=== PATIENT | male | born 1990 | race Two or more races ===

== ENCOUNTER 2016-09-13 12:36 | Emergency (ER) | payer OTHER ==
[~2016-09-13] VITALS: Ht 193 cm; Wt 128.4 kg
[2016-09-13 15:12] VITALS: BP 120/82
== END 2016-09-13 15:12 | disposition home or self-care (01) ==
LOC: ED 12:36
DX: S93.402A Sprain of unspecified ligament of left ankle, initial encounter (principal); X50.1XXA Overexertion from prolonged static or awkward postures, initial encounter; Y93.9 Activity, unspecified; Y92.89 Other specified places as the place of occurrence of the external cause; Y99.8 Other external cause status

== ENCOUNTER 2017-12-10 00:40 | Emergency (ER) | payer OTHER ==
[~2017-12-10] VITALS: Ht 193 cm; Wt 148.6 kg
[2017-12-10 00:50] VITALS: Ht 193 cm; Wt 148.6 kg
[2017-12-10 01:59] LABS: BASOPHIL % 0.3 % (0-2); CALCIUM 8.4 mg/dL (8.5-10.1); CARBON DIOXIDE 28.5 mmol/L (21-32); CHLORIDE SERUM 106 mmol/L (98-107); CREATININE SERUM 1.2 mg/dL (0.7-1.3); GFR1 > 60 mL/min; GLUCOSE SERUM 125 mg/dL (74-106); PLATELET COUNT 372 x10^3mcL (130-400); POTASSIUM SERUM 3.5 mmol/L (3.5-5.1); RED CELL DISTRIBUTION WIDTH 13.6 % (11.5-14.5); SODIUM SERUM 145 mmol/L (136-145)
[2017-12-10 02:00] LABS: ALBUMIN 3.7 g/dL (3.4-5.0); ALKALINE PHOSPHATASE 84 U/L (46-116); ALT/SGPT 80 U/L (16-63); AST/SGOT 23 U/L (15-37); BILIRUBIN TOTAL 1.27 mg/dL (0.20-1.00); LIPASE 117 IU/L (73-393); TOTAL PROTEIN, SERUM 7.1 g/dL (6.4-8.2)
[2017-12-10 03:47] VITALS: BP 138/75
== END 2017-12-10 03:47 | disposition home or self-care (01) ==
LOC: ED 00:40
PROVIDERS: Emergency Medicine
DX: K80.20 Calculus of gallbladder without cholecystitis without obstruction (principal)
CPT/HCPCS: J2405; J3010; J7030; Q0092

== ENCOUNTER 2018-01-25 07:08 | Emergency (ER) | payer OTHER ==
[~2018-01-25] VITALS: Ht 193 cm; Wt 144.2 kg
[2018-01-25 07:16] VITALS: Ht 193 cm; Wt 144.2 kg
[2018-01-25 08:33] VITALS: BP 136/82
== END 2018-01-25 08:33 | disposition home or self-care (01) ==
LOC: ED 07:08
DX: K80.50 Calculus of bile duct without cholangitis or cholecystitis without obstruction (principal)
CPT/HCPCS: J1885; J2270; Q0162

== ENCOUNTER 2018-02-14 07:43 | Emergency (ER) | payer OTHER ==
[~2018-02-14] VITALS: Ht 193 cm; Wt 144.0 kg
[2018-02-14 07:48] VITALS: Ht 193 cm; Wt 144.0 kg
[2018-02-14 08:16] LABS: BASOPHIL % 0.4 % (0-2); PLATELET COUNT 386 x10^3mcL (130-400)
[2018-02-14 08:22] LABS: CALCIUM 8.8 mg/dL (8.5-10.1); CHLORIDE SERUM 103 mmol/L (98-107); CREATININE SERUM 1.1 mg/dL (0.7-1.3); GFR1 > 60 mL/min; GLUCOSE SERUM 108 mg/dL (74-106); POTASSIUM SERUM 3.6 mmol/L (3.5-5.1); SODIUM SERUM 139 mmol/L (136-145)
[2018-02-14 08:27] LABS: ALBUMIN 3.8 g/dL (3.4-5.0); ALKALINE PHOSPHATASE 92 U/L (46-116); ALT/SGPT 76 U/L (16-63); AST/SGOT 40 U/L (15-37); BILIRUBIN TOTAL 1.3 mg/dL (0.20-1.00); LIPASE 155 IU/L (73-393); TOTAL PROTEIN, SERUM 7.4 g/dL (6.4-8.2)
[2018-02-14 09:02] VITALS: BP 130/66
== END 2018-02-14 09:04 | disposition home or self-care (01) ==
LOC: ED 07:43
PROVIDERS: Emergency Medicine
DX: K80.20 Calculus of gallbladder without cholecystitis without obstruction (principal)
CPT/HCPCS: J1885; J7030

== ENCOUNTER 2018-03-08 07:50 | Emergency (ER) | payer OTHER ==
[~2018-03-08] VITALS: Ht 193 cm; Wt 142.0 kg
[2018-03-08 07:53] VITALS: BP 139/92; Ht 193 cm; Wt 142.0 kg
== END 2018-03-08 09:02 | disposition home or self-care (01) ==
LOC: ED 07:50
DX: K80.50 Calculus of bile duct without cholangitis or cholecystitis without obstruction (principal)
CPT/HCPCS: J1885; J3010; Q0162

== ENCOUNTER 2018-03-15 07:01 | Emergency (ER) | payer OTHER ==
[~2018-03-15] VITALS: Ht 193 cm; Wt 142.4 kg
[2018-03-15 07:14] VITALS: Ht 193 cm; Wt 142.4 kg
[2018-03-15 07:38] LABS: BASOPHIL % 0.7 % (0-2); RED CELL DISTRIBUTION WIDTH 13.8 % (11.5-14.5)
[2018-03-15 07:45] LABS: PLATELET COUNT 423 x10^3mcL (130-400)
[2018-03-15 07:48] LABS: CALCIUM 9.1 mg/dL (8.5-10.1); CARBON DIOXIDE 28.9 mmol/L (21-32); CHLORIDE SERUM 103 mmol/L (98-107); CREATININE SERUM 1.2 mg/dL (0.7-1.3); GFR1 > 60 mL/min; GLUCOSE SERUM 115 mg/dL (74-106); POTASSIUM SERUM 3.5 mmol/L (3.5-5.1); SODIUM SERUM 139 mmol/L (136-145)
[2018-03-15 07:52] LABS: ALKALINE PHOSPHATASE 70 U/L (46-116); ALT/SGPT 56 U/L (16-63); AST/SGOT 19 U/L (15-37); LIPASE 145 IU/L (73-393); TOTAL PROTEIN, SERUM 7.6 g/dL (6.4-8.2)
[2018-03-15 10:18] VITALS: BP 113/70
== END 2018-03-15 10:18 | disposition home or self-care (01) ==
LOC: ED 07:01
PROVIDERS: Emergency Medicine
DX: K80.70 Calculus of gallbladder and bile duct without cholecystitis without obstruction (principal)
CPT/HCPCS: J1885; Q0092

== ENCOUNTER 2018-11-04 12:16 | Emergency (ER) | payer OTHER ==
[~2018-11-04] VITALS: Ht 185.4 cm; Wt 142.0 kg
[2018-11-04 12:20] VITALS: Ht 185.4 cm; Wt 142.0 kg
[2018-11-04 15:24] VITALS: BP 141/80
== END 2018-11-04 15:24 | disposition home or self-care (01) ==
LOC: ED 12:16
DX: R51 Headache (principal); Z87.19 Personal history of other diseases of the digestive system